=== PATIENT | female | born 1945 | race Caucasian/White ===

== ENCOUNTER 2017-07-01 10:41 | Emergency (ER) | payer OTHER ==
[~2017-07-01] VITALS: Ht 162.6 cm; Wt 72.6 kg
[~2017-07-01 10:41] MED LIST: ASPIR 8181 MG PO; ATENOLOL50 MG PO; CALCIUM 500+D1 EACH PO; CO Q1060 MG PO; DOXYCYCLINE HYC20 MG PO; FISH OIL500 M1 PO; GLUCOSAMINE1000 MG PO; MAGNESIUM OXID400 MG PO; NEURONTIN300 MG PO; POTASSIUM CHLO10 ME1 PO; SIMVASTATIN40 MG PO; VIBRAMYCIN100 MG
--- OUTSIDE RECORDS SUMMARY | 2017-07-01 10:43 | XMS REPORT | Clinical Summary ---
Author Author [facility] Address Unknown Phone Unavailable Care Team Providers Care Geodetic Advisor Name Role Phone MiguelMazaSiena DO PCP Allergies Not on File Current Medications Not on file Active Problems Not on file Encounters Date Type Specialty Care Team Description 10/08/2016 Hospital Radiology MiguelSiena Maza DO Screening mammogram, Encounter encounter for 08/16/2016 Transcribe Access MiguelLink SienaDO Screening mammogram, Orders encounter for (Primary Dx) after 06/30/2016 Social History Tobacco Use Types Packs/Day Years Used Date Never Assessed Sex Assigned at Date Recorded Not on file Last Filed Vital Signs Not on file Plan of Treatment Health Maintenance Due Date Last Done Comments COLONOSCOPY 08/04/1993 ZOSTER VACCINE 2003 PNEUMOCOCCAL 08/04/2008 POLYSACCHARIDE VACCINE AGE 65 AND OVER PNEUMOCOCCAL-13 08/04/2008 INFLUENZA VACCINE 11/06/2016 MAMMOGRAM 10/08/2018 10/08/2016, 10/05/2015, 10/01/2014, Additional history exists Results * Mammo Screening w Cad Bilateral (10/08/2016 10:34 AM) Specimen Performing Laboratory [facility] [address] [place] [address] Narrative PROCEDURE: MAMMO SCREENING W CAD BILATERAL Computer-assisted detection was utilized for the interpretation of this exam. COMPARISON: 10/01/2014, mammograms back to 2012 also available. TECHNIQUE: Bilateral digital screening mammograms were performed and interpreted using computer-assisted detection. CLINICAL HISTORY: The patient has no current breast complaints. FINDINGS: Bilateral mammograms demonstrate the breast parenchyma to be almost entirely fat. LEFT:No specific features of malignancy. RIGHT: No specific features of malignancy. IMPRESSION: BI-RADS category 1: Negative Annual mammogram recommended This facility is accredited by [employer] for Mammography. A negative x-ray report should not delay biopsy if a dominant or clinically suspicious mass is present. Not all cancers are identified by x-ray. [id number] after 06/30/2016 Insurance Payer Benefit Subscriber ID Type Phone Address Plan / Group [facility] [address] [place] [address]
[2017-07-01 11:42] LABS: BILIRUBIN,URINE NEGATIVE (NEGATIVE); KETONES,URINE NEGATIVE (NEGATIVE); LEUKOCYTE ESTERASE ,URINE 2+ (NEGATIVE); URINE UROBILINOGEN 0.2 mg/dL (0.2 - 1)
[2017-07-01 11:44] LABS: CLARITY,URINE CLOUDY (CLEAR); COLOR,URINE YELLOW (YELLOW); NITRITE,URINE POSITIVE (NEGATIVE); PROTEIN,URINE DIPSTICK 1+ (NEGATIVE)
[2017-07-01 11:55] LABS: BACTERIA,URINE MANY /HPF; EPITHELIAL CELLS,URINE RARE /LPF; WBC,URINE (MAN) >50 /HPF (0-5)
[2017-07-01 13:24] VITALS: BP 180/74
== END 2017-07-01 13:26 | disposition home or self-care (01) ==
LOC: ER 10:41
DX: N30.01 Acute cystitis with hematuria (principal); I10 Essential (primary) hypertension; E78.5 Hyperlipidemia, unspecified; Z88.1 Allergy status to other antibiotic agents; Z88.2 Allergy status to sulfonamides
CPT/HCPCS: 81001; 99282